=== PATIENT | male | born 1955 | race Caucasian/White ===

== ENCOUNTER → 2020-01-01 09:30 | Outpatient (CLI) | payer OTHER, SELFPAY ==
--- NOTE | 2020-01-01 | DI.US.S_ITS ---
PROCEDURE: US THYROID INDICATIONS: HYPERTYROIDISM TECHNIQUE: Real-time scanning was performed of the thyroid gland, with image documentation. COMPARISON: None. FINDINGS: Right: Thyroid lobe measures 5.1 x 1.8 x 1.4 cm, and is homogeneous in echotexture. Left: Thyroid lobe measures 3.5 x 1.2 x 1 cm. Isthmus: 2.2 mm thick. Nodule number: 1 Location: Right superior thyroid Size: 0.6 x 0.4 x 0.4 cm. Composition: Solid Echogenicity: Hypoechoic. There is increased vascularity noted. Shape: wider than tall. Margins: Smooth Echogenic foci: None Total points: 4 ACR TI-RADS category: 4 Separate from the thyroid on the left laterally, there is an abnormal hypervascular lymph node with no normal fatty hilum that measures 1.5 x 0.8 x 0.4 cm this is seen immediately adjacent to the lateral margin of the jugular vein. IMPRESSION: There is a hypervascular 6 mm right thyroid nodule seen. By published criteria, no specific imaging follow-up is recommended. There is an abnormal left-sided lymph node seen within the soft tissues of the neck on the left. A soft tissue protocol neck CT with IV contrast is now recommended for further evaluation. ACR TI-RADS definitions and recommendations: TI-RADS 1 (benign): 0 points. FNA not needed. TI-RADS 2 (not suspicious): 2 points. FNA not needed. TI-RADS 3 (mildly suspicious): 3 points. * FNA if 2.5 cm or larger, follow up if 1.5 cm or larger (at 1, 3, and 5 years). TI-RADS 4 (moderately suspicious): 4-6 points. * FNA if 1.5 cm or larger, follow up if 1 cm or larger (at 1, 2, 3, and 5 years). TI-RADS 5 (highly suspicious): 7 points or more. * FNA if 1 cm or larger, follow up if 0.5 cm or larger (every year for 5 years). Dictated by: Frandy Stuart M.D. on 01/01/2020 at 10:17 Approved by: Frandy Stuart M.D. on 01/01/2020 at 10:21
== END ==
PROVIDERS: Family Provider Family Medicine; PCP Family Medicine; Referring Provider Nurse Practitioner Family; Visit Provider Nurse Practitioner Family
DX: E05.90 Thyrotoxicosis, unspecified without thyrotoxic crisis or storm (principal); E04.1 Nontoxic single thyroid nodule
CPT/HCPCS: 76536

== ENCOUNTER → 2020-01-18 08:25 | Outpatient (CLI) | payer OTHER, SELFPAY ==
--- NOTE | 2020-01-18 | DI.CT.S_ITS ---
PROCEDURE: CT SOFT TISSUE NECK W CON INDICATIONS: THYROID NODULE TECHNIQUE: After the administration of intravenous contrast, 3.0 mm axial sections acquired from the sella to the aortic arch. Additional oblique axial 3.0 mm sections acquired through the pharynx. 3 mm thick coronal and sagittal reformats were generated. For radiation dose reduction, the following was used: automated exposure control. COMPARISON: [facility], , US THYROID, 01/01/2020, 10:01. FINDINGS: Image quality: Excellent. Lymph nodes: No enlarged lymph nodes seen throughout the neck. Vessels: Visualized vasculature appears patent. Neck spaces: The oropharynx, nasopharynx, and pharynx demonstrate no mucosal lesions. The vocal cords, false vocal cords, pyriform sinuses, epiglottis, vallecula, and tongue base all appear normal. Extramucosal spaces appear unremarkable. Glands: The parotid and submandibular glands appear normal. Thyroid gland is normal. Reported right thyroid nodule is not identified by CT imaging. Miscellaneous: Visualized brain and orbits appear normal. Lung apices appear clear. Superficial soft tissues appear normal. Bones: No suspicious bony lesions. Visualized sinuses and mastoids appear unremarkable. IMPRESSION: 1. No lymphadenopathy based on size criteria. 2. No mucosal-based masses. 3. Right thyroid nodule identified by prior ultrasound is not identified by CT imaging and cannot be evaluated. Dictated by: Venita Knowles MD, PhD on 01/18/2020 at 14:57 Approved by: Venita Knowles MD, PhD on 01/18/2020 at 15:02
[2020-01-18 09:21] LABS: BUN Creatinine Ratio 16.9 (6-22); Blood Urea Nitrogen 15 mg/dL (9-20); Calcium 9.6 mg/dL (8.4-10.2); Carbon Dioxide 27 mmol/L (22-32); Chloride 105 mmol/L (98-107); Estimated Glomerular Filt Rate > 60.0 mL/min (>60); Glucose 154 mg/dL (80-110); HEMOLYSIS < 15 (0-50); Potassium 4.7 mmol/L (3.4-5.1); Sodium 139 mmol/L (137-145)
== END ==
PROVIDERS: Family Provider Family Medicine; PCP Family Medicine; Referring Provider Nurse Practitioner Family; Visit Provider Nurse Practitioner Family
DX: E04.1 Nontoxic single thyroid nodule (principal)
CPT/HCPCS: 36415; 70491; 80048; Q9967

== ENCOUNTER → 2020-04-22 08:02 | Outpatient (CLI) | payer OTHER, SELFPAY ==
--- NOTE | 2020-04-22 | DI.US.S_ITS ---
PROCEDURE: US THYROID INDICATIONS: FOLLOW-UP NODULE, LYMPH NODE TECHNIQUE: Real-time scanning was performed of the thyroid gland, with image documentation. COMPARISON: [facility], CT, CT SOFT TISSUE NECK W CON, 01/18/2020, 9:52. [facility], US, US THYROID, 01/01/2020, 10:01. FINDINGS: Right: Thyroid lobe measures 5.1 x 1.6 x 1.7 cm, and is homogeneous in echotexture. No change in 6 mm hypoechoic nodule. Left: Thyroid lobe measures 3.6 x 0.9 x 1.2 cm, and is homogenous in echotexture. No significant interval change in prominent left neck lymph node when compared to prior examination measuring 1.6 x 0.8 x 0.4 cm compared to 1.5 x 0.8 x 0.4 cm on prior examination. Isthmus: 4.0 mm thick. IMPRESSION: 1. No change in 6 mm right thyroid nodule. Given the small size, no follow-up is warranted. 2. No change in prominent left neck lymph node. Dictated by: Ruben Amos RRA Interpreted: Patrick Rich MD on 04/22/2020 at 9:48 Approved by: Patrick Rich M.D. on 04/22/2020 at 11:12
== END ==
PROVIDERS: Family Provider Family Medicine; PCP Family Medicine; Referring Provider Family Medicine; Visit Provider Nurse Practitioner Family
DX: E04.1 Nontoxic single thyroid nodule
CPT/HCPCS: 76536

== ENCOUNTER 2020-05-20 14:19 | Emergency (ER) | payer OTHER, SELFPAY ==
[2020-05-20] VITALS (7 sets, daily range): BP systolic 138–171; BP diastolic 69–84; PULSE 59–79; RESP 15–20; TEMP 37.2; O2SAT 94–100
--- NOTE | 2020-05-20 15:17 | ED.GENADULT ---
HPI - General Adult General Chief complaint: Abdominal Pain Stated complaint: abd bloating/sob/injury x2 days Time Seen by Provider: 05/20/20 14:46 Source: patient Mode of arrival: Ambulatory Limitations: no limitations History of Present Illness HPI narrative: Patient is a 64-year-old male. Approximately 2 weeks ago had a traumatic injury where he fell off a scaffolding he did have a spinal compression fracture. Was on pain medication afterwards which caused him to have constipation but he is now off of his pain medication. He states that over the past day or so he has noticed dyspnea on exertion. Right-sided abdominal pain. He is urinating fine. He did have a normal bowel movement this morning. No fevers. No chest pain. He saw his primary doctor today who instructed him to come the emergency department for evaluation. Related Data Home Medications Medication Instructions Recorded Confirmed ascorbic acid (vitamin C) 500 mg PO 3 X WEEK #0 01/09/13 calcium citrate 200 mg PO Q DAY #0 03/26/16 cholecalciferol (vitamin D3) 400 mg PO #0 03/26/16 [Vitamin D3] ferrous gluconate [Iron High 240 mg PO Q DAY #0 03/26/16 Potency] Previous Rx's Medication Instructions Recorded cefuroxime axetil 500 mg PO BID #20 tab 08/13/16 Allergies Allergy/AdvReac Type Severity Reaction Status Date / Time clindamycin [CLINDAMYCIN] Allergy Intermediate GASTRITIS, Unverified 07/21/17 13:03 GI BLEED Penicillins [PENICILLINS] Allergy Intermediate RSAH Unverified 07/21/17 13:03 Review of Systems Constitutional Constitutional: Denies fatigue and Denies headache(s) ENT Ears, Nose, Mouth, and Throat: Denies headache(s) Cardiovascular Cardiovascular: Denies chest pain, Reports dyspnea and Reports dyspnea on exertion Respiratory Respiratory: Reports dyspnea and Reports dyspnea on exertion Gastrointestinal Gastrointestinal: Reports abdominal pain, Denies change in bowel habits, Denies diarrhea, Denies nausea and Denies vomiting Genitourinary Genitourinary: Denies dysuria Genitourinary: Denies dysuria Musculoskeletal Musculoskeletal: Denies arthralgias and Denies myalgias Integumentary/Breasts Skin/Breast: Denies rash Neurologic Neurologic: Denies behavioral changes and Denies headache(s) Psychiatric Psychiatric: Denies behavioral changes Endocrine Endocrine: Denies fatigue Hematologic/Lymphatic On Anticoagulants: No Allergic/Immunologic Allergic/Immunologic: Denies urticaria Patient History Medical History Excessive daytime sleepiness Obstructive sleep apnea Social History lives independently: Yes Exam Initial Vital Signs Initial Vital Signs: Vital Signs Temperature 99.0 F 05/20/20 14:24 Pulse Rate 79 05/20/20 14:24 Respiratory Rate 20 05/20/20 14:24 Blood Pressure 171/84 H 05/20/20 14:24 Pulse Oximetry 98 05/20/20 14:24 Const General: cooperative and comfortable Limitations: mental status not altered HENMT Head: normal to inspection and normocephalic Chest Chest: No crepitus and No tenderness Resp Effort & Inspection: normal respiratory effort Auscultation: clear to auscultation bilaterally Cardio Rate: regular rate Rhythm: regular rhythm GI Inspection: non-distended Palpation: soft and tender (Right-sided abdomen) Back/Spine/Pelvis Thoracic/Lumbar Spine: thoracic spinal tenderness (Where his stated fracture was located) Skin Lesions: no lesions Rashes: no rashes Neuro General: patient alert, patient awake and patient oriented x3 Cognition: normal cognition Speech: speech normal Extrem General: capillary refill normal Psych Appearance: grossly normal and well kempt Scores GCS [place] coma scale eye opening: Spontaneous Mattie coma scale verbal response: Orientated [place] coma scale motor response: Obey commands [place] coma scale total score: 15 Course Orders Ordered: ED Orders 05/20/20 15:15 Complete Blood Count AUTO DIFF Stat Comprehensive Metabolic Panel Stat D Dimer Stat Lipase Stat Troponin & CK Cardiac Panel Stat 05/20/20 15:51 EKG-12 Lead Stat 05/20/20 16:06 CT abdomen pelvis w con Stat CT angio chest PE protocol Stat Vital Signs Vital signs: Vital Signs - 8 hr 05/20/20 14:24 05/20/20 15:12 05/20/20 15:30 Temperature 99.0 F Pulse Rate 79 69 70 Respiratory Rate 20 20 19 Blood Pressure 171/84 H 143/70 H Pulse Oximetry 98 99 98 05/20/20 16:00 05/20/20 16:30 05/20/20 16:31 Temperature Pulse Rate 59 L 61 61 Respiratory Rate 15 20 15 Blood Pressure 138/74 155/76 H Pulse Oximetry 99 94 100 05/20/20 17:00 Temperature Pulse Rate 60 Respiratory Rate 20 Blood Pressure 145/69 H Pulse Oximetry 98 Medical Decision Making Lab Data Lab results reviewed: Yes I reviewed the patient's lab results. Result diagrams: 05/20/20 15:15 05/20/20 15:15 Labs: Lab Results 05/20/20 05/20/20 05/20/20 Range/Units 15:15 15:15 15:15 WBC 7.8 (4.5-11.0) X10^3/uL RBC 4.67 (4.5-5.9) X10^6/uL Hgb 13.6 (13.5-17.5) g/dL Hct 42.4 (41-53) % MCV 90.8 (80-100) fL MCH 29.1 (26-34) PG MCHC 32.0 (30-36) % RDW 13.5 (11.6-14.8) % Plt Count 441 H (150-400) X10^3/uL Neut % (Auto) 66.8 (50-75) % Lymph % (Auto) 23.3 L (25-40) % [place] % (Auto) 7.5 (3-14) % Eos % (Auto) 1.4 L (2-4) % Baso % (Auto) 1.0 (0-2) % Neut # (Auto) 5200 (6100-9872) /uL Lymph # (Auto) 1800 (4677-5273) /uL [place] # (Auto) 600 (0-900) /uL Eos # (Auto) 100 (0-450) /uL Baso # (Auto) 100 (0-100) /uL D-Dimer 519 H (<230) ng/mL Sodium 138 (137-145) mmol/L Potassium 4.0 (3.4-5.1) mmol/L Chloride 108 H (98-107) mmol/L Carbon Dioxide 29 (22-32) mmol/L BUN 15 (9-20) mg/dL Creatinine 0.88 (0.66-1.25) mg/dL Estimated GFR > 60.0 (>60) mL/min BUN/Creatinine Ratio 17.0 (6-22) Glucose 87 (80-110) mg/dL Calcium 9.4 (8.4-10.2) mg/dL Total Bilirubin 0.4 (0.2-1.3) mg/dL AST 30 (17-59) IU/L ALT 46 (<50) IU/L Alkaline Phosphatase 100 (38-126) U/L Total Creatine Kinase 62 (55-170) U/L CK-MB (CK-2) TNP CK-MB (CK-2) Rel Index TNP Troponin I < 0.012 (0.01-0.034) ng/mL Total Protein 7.1 (6.3-8.2) g/dL Albumin 4.1 (3.5-5.0) g/dL Globulin 3.0 (1.7-4.1) g/dL Albumin/Globulin Ratio 1.4 (1.0-2.8) Lipase 189 (23-300) U/L Urine Dip Bedside Urine Glucose Negative Bedside Urine Bilirubin - Negative Bedside Urine Ketone - Negative Urine Specific [place] 1.030 Bedside Urine Occult Blood - Negative Bedside Urine pH 6.0 Bedside Urine Protein - Negative Bedside Urine Urobilinogen - Negative Bedside Urine Nitrite - Negative Bedside Urine Leukocytes - Negative Esterase Point of care testing: Urine Dip Bedside Urine Glucose Negative Bedside Urine Bilirubin - Negative Bedside Urine Ketone - Negative Urine Specific [place] 1.030 Bedside Urine Occult Blood - Negative Bedside Urine pH 6.0 Bedside Urine Protein - Negative Bedside Urine Urobilinogen - Negative Bedside Urine Nitrite - Negative Bedside Urine Leukocytes - Negative Esterase Imaging Data CT scan - abdomen/pelvis: Radiologist's Impression: [address] [id number] Scan ReportSigned Patient: Semaj Rhodes R#: [id number]: 6Acct:[id number]/Sex: 64 / MDate of Service: 05/20/20Loc: EDAccession Number: [id number] Procedure: CT abdomen pelvis w con Ordering Provider: Elieser Monaco D.O. PROCEDURE: CT ABDOMEN PELVIS W CON INDICATIONS: Right-sided abdominal pain TECHNIQUE: After the administration of intravenous contrast, 5 mm thick sections acquired from the diaphragm to the symphysis. 5 mm coronal and sagittal reformats were acquired. For radiation dose reduction, the following was used: automated exposure control, adjustment of mA and/or kV according to patient size. COMPARISON: None. FINDINGS: Image quality: Excellent. ABDOMEN: Lung bases: Lung bases are clear. Heart size is normal. Solid organs: Liver is mildly enlarged with steatosis. Gallbladder is unremarkable. Biliary system is non dilated. Pancreas enhances normally. Spleen is normal in size and enhancement. No adrenal nodules. Kidneys demonstrate normal size and enhancement, without hydronephrosis. Low-attenuation focus is noted in the left mid pole likely cyst. Peritoneum and bowel: Bowel loops demonstrate normal wall thickness and caliber. No free fluid or air. Moderate stool is present. Nodes and vessels: No retroperitoneal or mesenteric adenopathy by size criteria. Aorta and inferior vena cava are normal in size. Miscellaneous: No ventral hernias. PELVIS: Genitourinary: Bladder wall thickness is normal. Miscellaneous: No inguinal hernias or adenopathy. Bones: No suspicious bony lesions. No vertebral body compression fractures. IMPRESSION: 1. Prominent stool consistent with constipation. No obstruction. 2. Right renal cyst. Dictated by: Lilian Wu M.D. on 05/20/2020 at 16:41 Approved by: Lilian Wu M.D. on 05/20/2020 at 16:43 CT scan - chest: Radiologist's Impression: [address] [id number] Scan ReportSigned Patient: Semaj Rhodes R#: [id number]: 6Acct:[id number]/Sex: 64 / MDate of Service: 05/20/20Loc: EDAccession Number: [id number] Procedure: CT angio chest PE protocol Ordering Provider: Elieser Monaco D.O. PROCEDURE: CT ANGIO CHEST PE PROTOCOL INDICATIONS: Chest pain, shortness of breath, TECHNIQUE: After the administration of intravenous contrast, 2 mm thick sections acquired from the pulmonary apices to the posterior costophrenic angles. 3-dimensional maximum intensity projection (MIP) coronal and sagittal reformats were then acquired through the thorax. For radiation dose reduction, the following was used: automated exposure control, adjustment of mA and/or kV according to patient size. COMPARISON: None. FINDINGS: Image quality: Excellent. Pulmonary arteries: Pulmonary arteries are normal in size, and demonstrate no intraluminal filling defects to suggest central pulmonary embolism. Lungs and pleura: Lungs are clear. No pleural effusions or pneumothorax. Central and peripheral airways are patent. Mediastinum: Heart size is mildly prominent, without pericardial effusion. No mediastinal or hilar adenopathy. Thoracic aorta is normal in caliber and enhancement. Esophagus is normal in caliber, without hiatal hernia. Bones and chest wall: No suspicious bony lesions. Ribs and thoracic spine appear intact throughout. Thyroid gland is unremarkable. No axillary or supraclavicular adenopathy. Abdomen: Visualized upper abdominal solid organs appear normal in the early arterial phase of enhancement. IMPRESSION: 1. Lungs are clear. No pulmonary embolism. Dictated by: Lilian Wu M.D. on 05/20/2020 at 16:40 Approved by: Lilian Wu M.D. on 05/20/2020 at 16:41 ECG Data Attestation: I personally reviewed and interpreted this ECG as follows: Prior ECG tracings: not available for review Interpretation: Sinus bradycardia Ventricular rate of 58 Normal axis Normal QRS Normal QTC Nonspecific ST T wave changes MDM Narrative Medical decision making narrative: Patient's CT scans today show no acute pathology in either his chest or his abdomen. He does have prominent stool burden noticed on the CT scan. He did have a bowel movement today however he does admit that he has been somewhat constipated given the pain medicine he has been on for the past couple days. We did discuss the use of laxatives and stool softeners. We can hold on further workup for now. No indication for antibiotics. No indication for surgical consultation. We discussed return precautions and follow-up. Expressed understanding and agreement. Discharge Plan Departure Patient Disposition: Home Clinical Impression: Abdominal pain, Constipation Instructions: DI for Constipation Activity Restrictions/Additional Instructions: Your workup here in the emergency department does not show any infectious or surgical issues. The CT scan of your abdomen does show what appears to be constipation. This very well could be causing your abdominal pain. I recommend you continue with the stool softener and start taking the laxative if needed like we discussed. You can purchase these [id number]. Contact your primary provider for follow-up. Return to the emergency department for any new or worsening symptoms Prescriptions: No Action ascorbic acid (vitamin C) 500 MG tablet 500 mg PO 3 X WEEK Qty: 0 RF: 0 ferrous gluconate [Iron High Potency] 240 MG tablet 240 mg PO Q DAY Qty: 0 RF: 0 calcium citrate 200 MG tablet 200 mg PO Q DAY Qty: 0 RF: 0 cholecalciferol (vitamin D3) [Vitamin D3] 400 UNIT capsule 400 mg PO Qty: 0 RF: 0 cefuroxime axetil 500 MG tablet 500 mg PO BID Qty: 20 RF: 0 Referrals: Darrell Braswell MD [Primary Care Provider] -
[2020-05-20 15:29] LABS: Add Manual Diff / Slide Review NO; Basophils Absolute Auto 100 /uL (0-100); Eosinophils Absolute Auto 100 /uL (0-450); Eosinophils Percent Auto 1.4 % (2-4); Hematocrit 42.4 % (41-53); Hemoglobin 13.6 g/dL (13.5-17.5); Lymphocytes Absolute Auto 1800 /uL (1100-4500); Lymphocytes Percent Auto 23.3 % (25-40); Mean Corpuscular Hemoglobin 29.1 PG (26-34); Mean Corpuscular Volume 90.8 fL (80-100); Monocytes Absolute Auto 600 /uL (0-900); Monocytes Percent Auto 7.5 % (3-14); Neutrophils Absolute Auto 5200 /uL (1500-7000); Neutrophils Percent Auto 66.8 % (50-75); Platelet Count 441 X10^3/uL (150-400); Red Blood Cell Count 4.67 X10^6/uL (4.5-5.9); Red Cell Distribution Width 13.5 % (11.6-14.8); White Blood Cell Count 7.8 X10^3/uL (4.5-11.0)
[2020-05-20 15:45] LABS: Alanine Aminotransferase 46 IU/L (<50); Albumin 4.1 g/dL (3.5-5.0); Albumin Globulin Ratio 1.4 (1.0-2.8); Alkaline Phosphatase 100 U/L (38-126); Aspartate Aminotransferase 30 IU/L (17-59); Bilirubin Total 0.4 mg/dL (0.2-1.3); Blood Urea Nitrogen 15 mg/dL (9-20); Calcium 9.4 mg/dL (8.4-10.2); Carbon Dioxide 29 mmol/L (22-32); Chloride 108 mmol/L (98-107); Creatine Kinase 62 U/L (55-170); Estimated Glomerular Filt Rate > 60.0 mL/min (>60); Glucose 87 mg/dL (80-110); HEMOLYSIS < 15 (0-50); Lipase 189 U/L (23-300); Sodium 138 mmol/L (137-145); Total Protein 7.1 g/dL (6.3-8.2)
[2020-05-20 15:49] LABS: D Dimer 519 ng/mL (<230)
[2020-05-20 15:56] LABS: Troponin I < 0.012 ng/mL (0.01-0.034)
--- NOTE | 2020-05-20 16:06 | DI.CT.S_ITS ---
PROCEDURE: CT ANGIO CHEST PE PROTOCOL INDICATIONS: Chest pain, shortness of breath, TECHNIQUE: After the administration of intravenous contrast, 2 mm thick sections acquired from the pulmonary apices to the posterior costophrenic angles. 3-dimensional maximum intensity projection (MIP) coronal and sagittal reformats were then acquired through the thorax. For radiation dose reduction, the following was used: automated exposure control, adjustment of mA and/or kV according to patient size. COMPARISON: None. FINDINGS: Image quality: Excellent. Pulmonary arteries: Pulmonary arteries are normal in size, and demonstrate no intraluminal filling defects to suggest central pulmonary embolism. Lungs and pleura: Lungs are clear. No pleural effusions or pneumothorax. Central and peripheral airways are patent. Mediastinum: Heart size is mildly prominent, without pericardial effusion. No mediastinal or hilar adenopathy. Thoracic aorta is normal in caliber and enhancement. Esophagus is normal in caliber, without hiatal hernia. Bones and chest wall: No suspicious bony lesions. Ribs and thoracic spine appear intact throughout. Thyroid gland is unremarkable. No axillary or supraclavicular adenopathy. Abdomen: Visualized upper abdominal solid organs appear normal in the early arterial phase of enhancement. IMPRESSION: 1. Lungs are clear. No pulmonary embolism. Dictated by: Lilian Wu M.D. on 05/20/2020 at 16:40 Approved by: Lilian Wu M.D. on 05/20/2020 at 16:41
--- NOTE | 2020-05-20 16:06 | DI.CT.S_ITS ---
PROCEDURE: CT ABDOMEN PELVIS W CON INDICATIONS: Right-sided abdominal pain TECHNIQUE: After the administration of intravenous contrast, 5 mm thick sections acquired from the diaphragm to the symphysis. 5 mm coronal and sagittal reformats were acquired. For radiation dose reduction, the following was used: automated exposure control, adjustment of mA and/or kV according to patient size. COMPARISON: None. FINDINGS: Image quality: Excellent. ABDOMEN: Lung bases: Lung bases are clear. Heart size is normal. Solid organs: Liver is mildly enlarged with steatosis. Gallbladder is unremarkable. Biliary system is non dilated. Pancreas enhances normally. Spleen is normal in size and enhancement. No adrenal nodules. Kidneys demonstrate normal size and enhancement, without hydronephrosis. Low-attenuation focus is noted in the left mid pole likely cyst. Peritoneum and bowel: Bowel loops demonstrate normal wall thickness and caliber. No free fluid or air. Moderate stool is present. Nodes and vessels: No retroperitoneal or mesenteric adenopathy by size criteria. Aorta and inferior vena cava are normal in size. Miscellaneous: No ventral hernias. PELVIS: Genitourinary: Bladder wall thickness is normal. Miscellaneous: No inguinal hernias or adenopathy. Bones: No suspicious bony lesions. No vertebral body compression fractures. IMPRESSION: 1. Prominent stool consistent with constipation. No obstruction. 2. Right renal cyst. Dictated by: Lilian Wu M.D. on 05/20/2020 at 16:41 Approved by: Lilian Wu M.D. on 05/20/2020 at 16:43
== END 2020-05-20 17:17 | disposition home or self-care (01) ==
PROVIDERS: Emergency Provider Emergency Medicine; Family Provider Family Medicine; PCP Family Medicine
DX: K59.03 Drug induced constipation (principal); T50.905A Adverse effect of unspecified drugs, medicaments and biological substances, initial encounter; R10.9 Unspecified abdominal pain; R06.00 Dyspnea, unspecified; R07.9 Chest pain, unspecified; R00.1 Bradycardia, unspecified; Y99.0 Civilian activity done for income or pay
CPT/HCPCS: 36415; 71275; 74177; 80053; 81003; 82550; 83690; 84484; 85025; 85379; 93005; 93010; 99284

== ENCOUNTER → 2022-09-15 12:46 | Outpatient (CLI) | payer MEDICARE, SELFPAY ==
--- NOTE | 2022-09-15 | DI.US.S_ITS ---
PROCEDURE: US ABD AORTA ANEURYSM SCREEN INDICATIONS: Personal history of nicotine dependence TECHNIQUE: Real time scanning was performed of the aorta and iliac arteries, with image documentation. COMPARISON: None. FINDINGS: Aorta: Proximal aortic diameter measures 2.2 cm. Mid-aorta measures 2.3 cm. Distal aortic diameter is 2.1 cm. Iliac arteries: Right common iliac artery measures 1.4 cm. Left common iliac artery measures 1.3 cm. IMPRESSION: No infrarenal aortic aneurysm. Dictated by: Joe Mckeon M.D. on 09/15/2022 at 14:12 Approved by: Joe Mckeon M.D. on 09/15/2022 at 14:13
== END ==
PROVIDERS: Family Provider Family Medicine; PCP Family Medicine; Referring Provider Family Medicine; Visit Provider Family Medicine
DX: Z13.6 Encounter for screening for cardiovascular disorders (principal); Z87.891 Personal history of nicotine dependence
CPT/HCPCS: 76706

== ENCOUNTER → 2024-04-03 07:50 | Outpatient (CLI) | payer MEDICARE, SELFPAY ==
--- NOTE | 2024-04-03 07:56 | DI.CT.S_ITS ---
PROCEDURE: CT SINUS SCREEN WO CON INDICATIONS: CHRONIC PANISINUSITIS TECHNIQUE: Noncontrast 3.0 mm axial images acquired from the frontal sinuses to the mid-sella, with coronal and sagittal reformats. For radiation dose reduction, the following was used: automated exposure control, adjustment of mA and/or kV according to patient size. COMPARISON: None. FINDINGS: Image quality: Excellent. Maxillary Sinuses: No bony remodeling or destruction. Small air-fluid levels bilaterally. Ethmoid Air Cells: No bony remodeling or destruction. Sinuses are clear. Sphenoid Sinuses: No bony remodeling or destruction. Sinuses are clear. Frontal Sinuses: No bony remodeling or destruction. Sinuses are clear. Ostiomeatal Complexes: Ostiomeatal complexes are patent. No Kathrin cells. Miscellaneous: Visualized intra-orbital contents are normal. Bilateral lens replacements. No oleksandr bullosa or paradoxical turbinate curvature. Minimal leftward nasal septal deviation and spurring. IMPRESSION: Small air-fluid levels within the bilateral maxillary sinuses. Dictated by: Jabier Wood M.D. on 04/03/2024 at 13:31 Approved by: Jabier Wood M.D. on 04/03/2024 at 13:33
== END ==
PROVIDERS: Family Provider Family Medicine; PCP Family Medicine; Referring Provider Otolaryngology; Visit Provider Otolaryngology
DX: J32.4 Chronic pansinusitis (principal)
CPT/HCPCS: 70486